=== PATIENT | male | born 1965 | race Hispanic/Latino ===

== ENCOUNTER 2021-11-25 18:34 | Emergency (ER) | payer BC ==
[~2021-11-25] VITALS: Ht 185.4 cm; Wt 106.6 kg
[2021-11-25] MEDS ORDERED: 0.9%NACL 1000ML 1,000 ML IV ONE ×2 (18:52→19:00)
[2021-11-25] MEDS ORDERED: SOLU-MEDROL 125MG VIAL ONE (18:54)
[2021-11-25] MEDS ORDERED: EPINEPHRINE PF 1MG AMP ONE (18:54)
[2021-11-25] MEDS ORDERED: DiphenhydrAMINE HCL 50 MG/ML VIAL IV ONE (19:00)
[2021-11-25] MEDS ORDERED: EPINEPHRINE PF 1MG AMP IM SCH (19:00)
[2021-11-25] MEDS ORDERED: FAMOTIDINE 20MG VIAL IV ONE (19:00)
[2021-11-25 19:28] VITALS: BP 124/67
[2021-11-25] MEDS ORDERED: ALBUTEROL 0.083% 2.5 MG/3 ML INH IH ONE (20:30)
[2021-11-25] MEDS ORDERED: PREDNISONE 20 MG TABLET PO ONE (20:30)
[2021-11-25] MEDS ORDERED: PREDNISONE 20 MG TABLET ONE (20:33)
[2021-11-25] MEDS ORDERED: PRED20TA3 PO (22:06)
[2021-11-25] MEDS ORDERED: EPIN0.3P3 IJ (22:06)
== END 2021-11-25 22:18 | disposition home or self-care (01) ==
LOC: EDH 18:34
DX: T78.2XXA Anaphylactic shock, unspecified, initial encounter (principal); F41.9 Anxiety disorder, unspecified; E78.00 Pure hypercholesterolemia, unspecified; I25.2 Old myocardial infarction; Z98.890 Other specified postprocedural states; Z79.899 Other long term (current) drug therapy
CPT/HCPCS: 94640; 96372; 96374; 96375; 99284; J0171; J1200; J2930; J3490; J7030